=== PATIENT | male | born 1985 | race Caucasian/White ===

== ENCOUNTER 2018-07-29 22:51 | Emergency (ER) | payer SELFPAY ==
[~2018-07-29] VITALS: Ht 177.8 cm; Wt 59.1 kg
[2018-07-29] MEDS ORDERED: COMPLERA 200 MG1 TAB PO (23:10)
[2018-07-29] MEDS ORDERED: PROAIR HFA0.09 MG/AC IH (23:23)
[2018-07-29] MEDS ORDERED: PENICILLIN-VK500 M1 PO (23:41)
[2018-07-29 23:51] VITALS: BP 154/101
== END 2018-07-29 23:51 | disposition home or self-care (01) ==
LOC: ED 22:51
DX: K04.7 Periapical abscess without sinus (principal); K03.81 Cracked tooth; K02.9 Dental caries, unspecified; Z79.899 Other long term (current) drug therapy